=== PATIENT | female | born 1950 | race Caucasian/White ===

== ENCOUNTER 2018-03-14 08:15 | Inpatient (IN) | payer MEDICARE, MEDICAID ==
[~2018-03-14] VITALS: Ht 162.6 cm; Wt 65.6 kg
[2018-03-14] MEDS ORDERED: LISI-660 PO (09:24)
[2018-03-14] MEDS ORDERED: LEVO25TA9 PO (09:24)
[2018-03-14] MEDS ORDERED: GABA-529 PO (09:24)
[2018-03-14 09:27] LABS: BASOPHILS % (AUTO) 0.7 % (0.0-2.0); HEMATOCRIT 34.3 % (36-46); HEMOGLOBIN 11.6 g/dL (12.0-16.0); LYMPHOCYTES # (AUTO) 2.3 K/uL (1.0-4.8); LYMPHOCYTES % (AUTO) 26.9 % (22.0-44.0); MEAN CORPUSCULAR HEMOGLOBIN 30.9 pg (26.0-34.0); MEAN CORPUSCULAR HGB CONC 33.8 G/dL (31.0-37.0); MEAN CORPUSCULAR VOLUME 91 fL (80-100); MONOCYTES # (AUTO) 0.8 K/uL (0.1-1.0); MONOCYTES % (AUTO) 8.9 % (2.0-9.0); NEUTROPHILS # (AUTO) 4.9 K/uL (1.8-7.7); NEUTROPHILS % (AUTO) 58.5 % (40.0-70.0); PLATELET COUNT (AUTO) 296 K/uL (150-450); RED BLOOD CELL COUNT(AUTO) 3.76 MIL/uL (4.00-5.20); RED CELL DISTRIBUTION WIDTH 13.1 % (11.5-14.5)
[2018-03-14 09:34] LABS: ANION GAP 9 mmol/L (8-16); CALCIUM, TOTAL 8.7 mg/dL (8.8-10.5); CARBON DIOXIDE 25 mmol/L (22-29); CHLORIDE 106 mmol/L (98-107); CREATININE 1.11 mg/dL (0.60-1.30); GLOMERULAR FILTR. RATE CALC 49 mL/min (>60); GLUCOSE,RANDOM 105 mg/dL (70-110); POTASSIUM 3.6 mmol/L (3.5-5.1); SODIUM SERUM 140 mmol/L (136-145); UREA NITROGEN, BLOOD 13 mg/dL (7-18)
[2018-03-14 09:41] LABS: ALANINE AMINOTRANSFERASE 19 U/L (12-78); ALBUMIN 3.5 g/dL (3.4-5.0); ALKALINE PHOSPHATASE 86 U/L (46-116); ASPARTATE AMINOTRANSFERASE 20 U/L (15-37); BILIRUBIN,TOTAL 0.4 mg/dL (0.1-1.0); TOTAL PROTEIN, SERUM 6.5 g/dL (6.4-8.2)
[2018-03-14 09:47] LABS: APPEARANCE,URINE CLOUDY (CLEAR); BILIRUBIN,URINE NEGATIVE (NEGATIVE); GLUCOSE, URINE (UA) NEGATIVE (NEGATIVE); KETONES,URINE NEGATIVE (NEGATIVE); LEUKOCYTE ESTERASE ,URINE SMALL (NEGATIVE); NITRATE,URINE NEGATIVE (NEGATIVE); OCCULT BLOOD,URINE TRACE (NEGATIVE); PH,URINE 5.5 (5.0-8.0); PROTEIN,URINE NEGATIVE (NEGATIVE); UROBILINOGEN,URINE 0.2 mg/dL (<=1.0)
[2018-03-14 09:48] LABS: AMPHET/METH SCREEN,URINE NEGATIVE (NEGATIVE); BARBITURATE SCREEN, URINE NEGATIVE (NEGATIVE); BENZODIAZEPINES SCREEN,URINE NEGATIVE (NEGATIVE); CANNABINOID SCREEN,URINE NEGATIVE (NEGATIVE); COCAINE SCREEN,URINE NEGATIVE (NEGATIVE); METHADONE SCREEN, URINE NEGATIVE (NEGATIVE); OPIATE SCREEN,URINE NEGATIVE (NEGATIVE)
[2018-03-14 09:50] LABS: PHENCYCLIDINE SCREEN,URINE NEGATIVE (NEGATIVE)
[2018-03-14 09:54] LABS: BACTERIA,URINE Few /HPF (None Seen); SQUAMOUS EPITHELIAL CELL,UR Few /LPF (None Seen)
[2018-03-14] MEDS ORDERED: ACETAMINOPHEN 500 MG TABLET PO ONE (10:00)
[2018-03-14] MEDS ORDERED: HALOPERIDOL 5 MG TABLET PO PRN (10:30)
[2018-03-14] MEDS ORDERED: LEVOTHYROXINE SODIUM 125 MCG TABLET PO ONE (11:00)
[2018-03-14] MEDS: OLANZapine 5 MG TABLET PO SCH (18:25)
[2018-03-14 20:08] LABS: GLUCOMETER DEV NAME(LOC) BV3S 2; GLUCOSE,POINT OF CARE 110 MG/DL (70-110)
[2018-03-14 20:17] VITALS: BP 146/73
[2018-03-14] MEDS ORDERED: ONDANSETRON HCL 4 MG TABLET PO PRN (21:00)
[2018-03-14] MEDS ORDERED: MAG HYDROX/AL HYDROX/SIMETH ES 30 ML SUSPENSION UDCUP PO PRN (21:00)
[2018-03-14] MEDS ORDERED: DOCUSATE SODIUM 100 MG CAPSULE PO PRN (21:00)
[2018-03-14] MEDS ORDERED: MAGNESIUM HYDROXIDE SUSPENSION 30 ML UDCUP PO PRN (21:00)
[2018-03-14] MEDS ORDERED: ALBUTEROL SULFATE HFA 90 MCG/PUFF 8 GM INHALER IH PRN (21:00)
[2018-03-14] MEDS ORDERED: PETROLATUM,WHITE 71 GM JELLY TP PRN (21:00)
[2018-03-14] MEDS ORDERED: CloNIDine HCL 0.1 MG TABLET PO PRN (21:00)
[2018-03-14] MEDS: GABAPENTIN 100 MG CAPSULE PO SCH (22:01)
[2018-03-15] MEDS ORDERED: PNEUMOCOCCAL VACCINE POLYVALENT 0.5 ML VIAL [PPSV23] IM ONE (03:15)
[2018-03-15 04:36] VITALS: BP 140/68
[2018-03-15] MEDS: ACETAMINOPHEN 325 MG TABLET PO PRN ×2 (04:39→12:52)
[2018-03-15] MEDS ORDERED: LEVOTHYROXINE SODIUM 25 MCG TABLET PO SCH (06:30)
[2018-03-15 08:40] VITALS: BP 138/81
[2018-03-15] MEDS: FLUoxetine HCL 20 MG CAPSULE PO SCH (09:00)
[2018-03-15] MEDS: NICOTINE 14 MG/24 HOUR PATCH TD SCH (09:00)
[2018-03-15 09:25] LABS: BASOPHILS % (AUTO) 1.1 % (0.0-2.0); EOSINOPHILS % (AUTO) 6.3 % (1.0-6.0); HEMATOCRIT 38.1 % (36-46); HEMOGLOBIN 12.8 g/dL (12.0-16.0); LYMPHOCYTES # (AUTO) 2.5 K/uL (1.0-4.8); LYMPHOCYTES % (AUTO) 38.9 % (22.0-44.0); MEAN CORPUSCULAR HEMOGLOBIN 30.9 pg (26.0-34.0); MEAN CORPUSCULAR HGB CONC 33.6 G/dL (31.0-37.0); MEAN CORPUSCULAR VOLUME 92 fL (80-100); MONOCYTES # (AUTO) 0.5 K/uL (0.1-1.0); MONOCYTES % (AUTO) 7.9 % (2.0-9.0); NEUTROPHILS # (AUTO) 2.9 K/uL (1.8-7.7); NEUTROPHILS % (AUTO) 45.8 % (40.0-70.0); PLATELET COUNT (AUTO) 319 K/uL (150-450); RED BLOOD CELL COUNT(AUTO) 4.13 MIL/uL (4.00-5.20); RED CELL DISTRIBUTION WIDTH 13.6 % (11.5-14.5)
[2018-03-15 09:37] LABS: HEMOGLOBIN A1C 5.6 % (4.5-6.2)
[2018-03-15] MEDS: OLANZapine 5 MG TABLET PO SCH ×2 (09:42→16:19)
[2018-03-15] MEDS: LISINOPRIL 5 MG TABLET PO SCH ×2 (09:42→16:19)
[2018-03-15 09:54] LABS: ALBUMIN 3.5 g/dL (3.4-5.0); BILIRUBIN,TOTAL 0.4 mg/dL (0.1-1.0); CALCIUM, TOTAL 9.4 mg/dL (8.8-10.5); CHOL/HDL RATIO 2.2 (3.9-5.7); CREATININE 1.03 mg/dL (0.60-1.30); FREE T4 (FREE THYROXINE) 0.39 ng/dL (0.76-1.46); POTASSIUM 4.1 mmol/L (3.5-5.1); THYROID STIMULATING HORMONE 53.55 uIU/mL (0.36-3.74); TOTAL PROTEIN, SERUM 6.8 g/dL (6.4-8.2)
[2018-03-15 16:09] VITALS: BP 129/65
[2018-03-15] MEDS: IBUPROFEN 400 MG TABLET PO PRN (18:39)
[2018-03-15] MEDS: GABAPENTIN 100 MG CAPSULE PO SCH ×2 (20:07→20:43)
[2018-03-16 03:32] VITALS: BP 140/85
[2018-03-16] MEDS: ACETAMINOPHEN 325 MG TABLET PO PRN ×3 (03:35→23:02)
[2018-03-16] MEDS: LEVOTHYROXINE SODIUM 75 MCG TABLET PO SCH (06:14)
[2018-03-16 08:29] VITALS: BP 158/98
[2018-03-16] MEDS: OLANZapine 5 MG TABLET PO SCH ×2 (09:59→16:43)
[2018-03-16] MEDS: LISINOPRIL 5 MG TABLET PO SCH ×2 (10:00→16:43)
[2018-03-16] MEDS: FLUoxetine HCL 20 MG CAPSULE PO SCH (10:00)
[2018-03-16] MEDS: NICOTINE 14 MG/24 HOUR PATCH TD SCH (10:04)
[2018-03-16 13:40] VITALS: BP 137/74
[2018-03-16 16:36] VITALS: BP 118/63
[2018-03-16] MEDS: GABAPENTIN 100 MG CAPSULE PO SCH ×2 (20:35)
[2018-03-16 23:00] VITALS: BP 141/82
[2018-03-16] MEDS ORDERED: LORATADINE 10 MG TABLET PO PRN (23:15)
[2018-03-17 01:18] VITALS: BP 136/78
[2018-03-17] MEDS: ZOLPIDEM TARTRATE 10 MG TABLET PO PRN ×2 (03:21→20:58)
[2018-03-17] MEDS: LEVOTHYROXINE SODIUM 75 MCG TABLET PO SCH (06:41)
[2018-03-17 08:32] VITALS: BP 123/71
[2018-03-17] MEDS: FLUTICASONE PROPIONATE 50 MCG/SPRAY 16 GM NASAL SPRAY NASAL SCH ×2 (09:36→16:50)
[2018-03-17] MEDS: NICOTINE 14 MG/24 HOUR PATCH TD SCH (09:36)
[2018-03-17] MEDS: LISINOPRIL 5 MG TABLET PO SCH ×2 (09:37→16:50)
[2018-03-17] MEDS: FLUoxetine HCL 20 MG CAPSULE PO SCH (09:37)
[2018-03-17] MEDS: OLANZapine 5 MG TABLET PO SCH ×2 (09:37→16:50)
[2018-03-17 13:47] VITALS: BP 125/82
[2018-03-17] MEDS: ACETAMINOPHEN 325 MG TABLET PO PRN (13:47)
[2018-03-17 16:25] VITALS: BP 140/82
[2018-03-17] MEDS: IBUPROFEN 400 MG TABLET PO PRN (16:51)
[2018-03-17] MEDS: GABAPENTIN 100 MG CAPSULE PO SCH ×2 (20:57→20:58)
[2018-03-18 03:15] VITALS: BP 131/76
[2018-03-18] MEDS: ACETAMINOPHEN 325 MG TABLET PO PRN ×2 (03:31→16:24)
[2018-03-18] MEDS: LEVOTHYROXINE SODIUM 75 MCG TABLET PO SCH (06:27)
[2018-03-18 08:12] VITALS: BP 109/63
[2018-03-18] MEDS: OLANZapine 5 MG TABLET PO SCH ×2 (08:23→16:24)
[2018-03-18] MEDS: LISINOPRIL 5 MG TABLET PO SCH ×2 (08:23→16:24)
[2018-03-18] MEDS: FLUTICASONE PROPIONATE 50 MCG/SPRAY 16 GM NASAL SPRAY NASAL SCH ×2 (08:24→16:24)
[2018-03-18] MEDS: NICOTINE 14 MG/24 HOUR PATCH TD SCH (08:25)
[2018-03-18] MEDS: FLUoxetine HCL 20 MG CAPSULE PO SCH (08:26)
[2018-03-18 16:10] VITALS: BP 117/68
[2018-03-18] MEDS: GABAPENTIN 100 MG CAPSULE PO SCH ×2 (20:08)
[2018-03-18] MEDS: ZOLPIDEM TARTRATE 10 MG TABLET PO PRN (21:58)
[2018-03-19 01:37] VITALS: BP 142/84
[2018-03-19] MEDS: ACETAMINOPHEN 325 MG TABLET PO PRN (01:49)
[2018-03-19] MEDS: LORazepam 2 MG TABLET PO PRN (02:34)
[2018-03-19] MEDS: IBUPROFEN 400 MG TABLET PO PRN ×2 (06:46→14:24)
[2018-03-19] MEDS: LEVOTHYROXINE SODIUM 75 MCG TABLET PO SCH (06:46)
[2018-03-19] MEDS: FLUoxetine HCL 20 MG CAPSULE PO SCH (08:15)
[2018-03-19] MEDS: OLANZapine 5 MG TABLET PO SCH ×2 (08:15→16:09)
[2018-03-19] MEDS: LISINOPRIL 5 MG TABLET PO SCH ×2 (08:15→16:09)
[2018-03-19] MEDS: FLUTICASONE PROPIONATE 50 MCG/SPRAY 16 GM NASAL SPRAY NASAL SCH ×2 (08:16→16:09)
[2018-03-19 08:19] VITALS: BP 101/72
[2018-03-19] MEDS: NICOTINE 14 MG/24 HOUR PATCH TD SCH (08:20)
[2018-03-19 16:08] VITALS: BP 119/74
[2018-03-19] MEDS: GABAPENTIN 100 MG CAPSULE PO SCH ×2 (20:34)
[2018-03-20 00:40] VITALS: BP_SYST 111; BP_SYST 151; BP_DIAS 66; BP_DIAS 85
[2018-03-20] MEDS: LEVOTHYROXINE SODIUM 75 MCG TABLET PO SCH (06:31)
[2018-03-20] MEDS: OLANZapine 5 MG TABLET PO SCH ×2 (08:38→17:08)
[2018-03-20] MEDS: FLUTICASONE PROPIONATE 50 MCG/SPRAY 16 GM NASAL SPRAY NASAL SCH ×2 (08:39→17:08)
[2018-03-20] MEDS: LISINOPRIL 5 MG TABLET PO SCH ×2 (08:39→17:08)
[2018-03-20] MEDS: FLUoxetine HCL 20 MG CAPSULE PO SCH (08:39)
[2018-03-20 08:42] VITALS: BP 110/69
[2018-03-20] MEDS: NICOTINE 14 MG/24 HOUR PATCH TD SCH (09:06)
[2018-03-20] MEDS: ACETAMINOPHEN 325 MG TABLET PO PRN ×2 (10:05→20:32)
[2018-03-20 16:11] VITALS: BP 130/73
[2018-03-20] MEDS: GABAPENTIN 100 MG CAPSULE PO SCH ×2 (20:30→20:32)
[2018-03-20 21:52] VITALS: BP 124/72
[2018-03-20] MEDS: IBUPROFEN 400 MG TABLET PO PRN (21:52)
[2018-03-21 00:21] VITALS: BP 132/62
[2018-03-21 04:05] VITALS: BP 130/68
[2018-03-21] MEDS: LORazepam 2 MG TABLET PO PRN (04:08)
[2018-03-21] MEDS: LEVOTHYROXINE SODIUM 75 MCG TABLET PO SCH (06:33)
[2018-03-21 08:32] VITALS: BP 145/60
[2018-03-21] MEDS: FLUoxetine HCL 20 MG CAPSULE PO SCH (09:00)
[2018-03-21] MEDS: OLANZapine 5 MG TABLET PO SCH ×2 (09:05→16:26)
[2018-03-21] MEDS: LISINOPRIL 5 MG TABLET PO SCH ×2 (09:05→16:26)
[2018-03-21] MEDS: FLUTICASONE PROPIONATE 50 MCG/SPRAY 16 GM NASAL SPRAY NASAL SCH ×2 (09:05→16:26)
[2018-03-21] MEDS: NICOTINE 14 MG/24 HOUR PATCH TD SCH (09:05)
[2018-03-21] MEDS: ACETAMINOPHEN 325 MG TABLET PO PRN (09:06)
[2018-03-21 10:00] VITALS: BP 139/77
[2018-03-21 16:14] VITALS: BP 109/62
[2018-03-21 16:56] VITALS: BP 109/62
[2018-03-21] MEDS: IBUPROFEN 400 MG TABLET PO PRN (18:36)
[2018-03-21] MEDS: GABAPENTIN 100 MG CAPSULE PO SCH (20:02)
[2018-03-22 00:39] VITALS: BP 112/68
[2018-03-22] MEDS: ZOLPIDEM TARTRATE 10 MG TABLET PO PRN ×2 (03:04→22:06)
[2018-03-22 03:16] VITALS: BP 140/68
[2018-03-22] MEDS: LEVOTHYROXINE SODIUM 75 MCG TABLET PO SCH (06:36)
[2018-03-22 08:24] VITALS: BP 130/67
[2018-03-22] MEDS: OLANZapine 5 MG TABLET PO SCH ×2 (08:26→16:00)
[2018-03-22] MEDS: LISINOPRIL 5 MG TABLET PO SCH ×2 (08:26→16:00)
[2018-03-22] MEDS: FLUTICASONE PROPIONATE 50 MCG/SPRAY 16 GM NASAL SPRAY NASAL SCH ×2 (08:27→16:03)
[2018-03-22] MEDS: NICOTINE 14 MG/24 HOUR PATCH TD SCH (08:27)
[2018-03-22] MEDS: FLUoxetine HCL 20 MG CAPSULE PO SCH (08:31)
[2018-03-22] MEDS: ACETAMINOPHEN 325 MG TABLET PO PRN ×2 (08:33→17:45)
[2018-03-22 08:34] VITALS: BP 130/67
[2018-03-22 12:27] VITALS: BP 128/79
[2018-03-22] MEDS: IBUPROFEN 400 MG TABLET PO PRN (12:30)
[2018-03-22 17:46] VITALS: BP 113/74
[2018-03-22] MEDS: GABAPENTIN 100 MG CAPSULE PO SCH (20:03)
[2018-03-23] MEDS: LOPERAMIDE HCL 2 MG CAPSULE PO PRN ×3 (04:18→18:48)
[2018-03-23 04:51] VITALS: BP 118/78
[2018-03-23] MEDS: LEVOTHYROXINE SODIUM 75 MCG TABLET PO SCH (06:41)
[2018-03-23] MEDS: LISINOPRIL 5 MG TABLET PO SCH ×2 (08:25→16:38)
[2018-03-23] MEDS: NICOTINE 14 MG/24 HOUR PATCH TD SCH (08:25)
[2018-03-23] MEDS: ACETAMINOPHEN 325 MG TABLET PO PRN ×2 (08:26→16:38)
[2018-03-23] MEDS: FLUTICASONE PROPIONATE 50 MCG/SPRAY 16 GM NASAL SPRAY NASAL SCH ×2 (08:26→16:38)
[2018-03-23] MEDS: FLUoxetine HCL 20 MG CAPSULE PO SCH (08:27)
[2018-03-23] MEDS: OLANZapine 5 MG TABLET PO SCH ×2 (08:27→16:38)
[2018-03-23 08:42] VITALS: BP 121/88
[2018-03-23 09:07] VITALS: BP 121/88
[2018-03-23 13:01] VITALS: BP 113/65
[2018-03-23 16:05] VITALS: BP 119/64
[2018-03-23 16:36] VITALS: BP 119/64
[2018-03-23] MEDS: GABAPENTIN 100 MG CAPSULE PO SCH (20:18)
[2018-03-24 00:47] VITALS: BP 125/75
[2018-03-24] MEDS: ZOLPIDEM TARTRATE 10 MG TABLET PO PRN ×2 (00:49→22:51)
[2018-03-24 01:28] VITALS: BP 125/75
[2018-03-24] MEDS: LEVOTHYROXINE SODIUM 75 MCG TABLET PO SCH (06:39)
[2018-03-24 08:16] VITALS: BP 125/60
[2018-03-24] MEDS: LISINOPRIL 5 MG TABLET PO SCH ×2 (08:28→16:51)
[2018-03-24] MEDS: NICOTINE 14 MG/24 HOUR PATCH TD SCH (08:29)
[2018-03-24] MEDS: OLANZapine 5 MG TABLET PO SCH ×2 (08:29→08:44)
[2018-03-24] MEDS: ACETAMINOPHEN 325 MG TABLET PO PRN (08:29)
[2018-03-24] MEDS: FLUTICASONE PROPIONATE 50 MCG/SPRAY 16 GM NASAL SPRAY NASAL SCH ×2 (09:44→16:51)
[2018-03-24] MEDS ORDERED: CIMETIDINE 300 MG TABLET PO SCH (09:45)
[2018-03-24] MEDS ORDERED: EZETIMIBE 10 MG TABLET PO SCH (09:45)
[2018-03-24 12:31] VITALS: BP 125/60
[2018-03-24] MEDS ORDERED: DiphenhydrAMINE HCL 25 MG CAPSULE PO ONE (17:00)
[2018-03-24] MEDS: GABAPENTIN 100 MG CAPSULE PO SCH (20:21)
[2018-03-24 20:34] VITALS: BP 123/82
[2018-03-24] MEDS ORDERED: OLANZapine 10 MG TABLET PO SCH (21:00)
[2018-03-25 01:06] VITALS: BP 130/86
[2018-03-25] MEDS ORDERED: LEVOTHYROXINE SODIUM 125 MCG TABLET PO SCH (06:30)
[2018-03-25] MEDS: LISINOPRIL 5 MG TABLET PO SCH (08:19)
[2018-03-25] MEDS: ACETAMINOPHEN 325 MG TABLET PO PRN (08:19)
[2018-03-25] MEDS: NICOTINE 14 MG/24 HOUR PATCH TD SCH (08:19)
[2018-03-25] MEDS: FLUTICASONE PROPIONATE 50 MCG/SPRAY 16 GM NASAL SPRAY NASAL SCH (08:20)
[2018-03-25 08:29] VITALS: BP 120/76
[2018-03-25] MEDS ORDERED: OLANZapine 5 MG TABLET PO SCH (09:00)
[2018-03-25 09:23] VITALS: BP 122/62
[2018-03-25] MEDS ORDERED: OLAN5TAB2 PO (11:17)
[2018-03-25] MEDS ORDERED: OLAN10TA3 PO (11:17)
[2018-03-25] MEDS ORDERED: FLUT16H NASAL (11:18)
== END 2018-03-25 16:00 | disposition home or self-care (01) | DRG 885 ==
LOC: EMS 08:18 → B3A 17:03 → B2S 03-21 11:06
PROVIDERS: ADMIT Psychiatry & Neurology Psychiatry; ATTEND Psychiatry & Neurology Psychiatry
DX: F31.5 Bipolar disorder, current episode depressed, severe, with psychotic features (principal); Z28.21 Immunization not carried out because of patient refusal; E11.9 Type 2 diabetes mellitus without complications; E11.40 Type 2 diabetes mellitus with diabetic neuropathy, unspecified; F11.90 Opioid use, unspecified, uncomplicated; F12.90 Cannabis use, unspecified, uncomplicated; F17.200 Nicotine dependence, unspecified, uncomplicated; R45.850 Homicidal ideations; I10 Essential (primary) hypertension; E03.9 Hypothyroidism, unspecified; M19.90 Unspecified osteoarthritis, unspecified site; F19.10 Other psychoactive substance abuse, uncomplicated; Z71.6 Tobacco abuse counseling; Z71.51 Drug abuse counseling and surveillance of drug abuser; Z91.14 Patient's other noncompliance with medication regimen; Z91.19 Patient's noncompliance with other medical treatment and regimen; W18.30XA Fall on same level, unspecified, initial encounter
CPT/HCPCS: 83036; 84439; 84443; 99285; 99406; G0480; Q0162